=== PATIENT | female | born 1945 | race Caucasian/White ===

== ENCOUNTER → 2023-07-30 10:04 | Outpatient (REF) | payer MEDICARE, OTHER, SELFPAY | LOC: SDSPAT 10:04 | PROVIDERS: ATTENDING PHYSICIAN Otolaryngology Facial Plastic Surgery | DX: J32.2 Chronic ethmoidal sinusitis (principal); J32.0 Chronic maxillary sinusitis; J32.1 Chronic frontal sinusitis; J33.0 Polyp of nasal cavity; J30.0 Vasomotor rhinitis | CPT/HCPCS: 36415; 93005 ==

== ENCOUNTER → 2023-12-09 06:27 | Outpatient (REF) | payer MEDICARE, OTHER, SELFPAY ==
[2023-12-09 07:41] LABS: Blood Urea Nitrogen 17 mg/dl (7-17); Calcium 9.5 mg/dl (8.4-10.2); Carbon Dioxide 30 mmol/L (22-30); Chloride 100 mmol/L (98-107); Glucose 114 mg/dl (70-99); Potassium 4.1 mmol/L (3.5-5.1); Sodium 138 mmol/L (135-145); eGFR > 60.00
== END ==
LOC: REG 06:27
PROVIDERS: ATTENDING PHYSICIAN Internal Medicine Cardiovascular Disease
DX: I10 Essential (primary) hypertension (principal)
CPT/HCPCS: 36415; 80048

== ENCOUNTER 2025-03-05 06:55 | Emergency (ER) | payer MEDICARE, OTHER, SELFPAY ==
[2025-03-05 07:12] VITALS: BP 176/86
[2025-03-05 07:44] LABS: % Basophils 0.9 % (0-2); % Eosinophils 5.2 % (0-6); % Immature Granulocytes 0.5 % (0-0.5); % Lymphocytes 23.3 % (20.5-51.1); % Monocytes 7.3 % (1.7-9.3); % Neutrophils 62.8 % (42.2-75.2); Absolute Basophils 0.1 10^3/uL (0-0.2); Absolute Eosinophils 0.3 10^3/uL (0-0.7); Absolute Lymphocytes 1.5 10^3/uL (1.2-3.4); Absolute Monocytes 0.5 10^3/uL (0.1-0.6); Absolute Neutrophils 4.1 10^3/uL (1.4-6.5); Hematocrit 42.4 % (37.0-47.0); Hemoglobin 14.5 g/dL (12.0-16.0); Mean Corp Hgb Conc. 34.2 g/dL (33.0-37.0); Mean Corpuscular Hgb 31.6 pg (27.0-31.0); Mean Corpuscular Volume 92.4 fL (81.0-99.0); Mean Platelet Volume 9.3 fL (7.4-10.4); Nucleated Red Blood Cells % 0 %; Platelet Count 214 10^3/uL (130-400); Red Blood Cell Count 4.59 10^6/uL (4.20-5.40); Red Cell Dist. Width 12.6 % (11.5-14.5); White Blood Cell Count 6.6 10^3/uL (4.8-10.8)
[2025-03-05 07:51] LABS: ALT (SGPT) 14 U/L (0-35); AST (SGOT) 17 U/L (14-36); Albumin 3.7 g/dl (3.5-5.0); Alkaline Phosphatase 55 U/L (38-126); Blood Urea Nitrogen 14 mg/dl (7-17); Calcium 9.2 mg/dl (8.4-10.2); Carbon Dioxide 29 mmol/L (22-30); Chloride 104 mmol/L (98-107); Glucose 107 mg/dl (70-99); Potassium 3.9 mmol/L (3.5-5.1); Sodium 139 mmol/L (135-145); Total Bilirubin 0.5 mg/dl (0.2-1.3); Total Protein 6.1 g/dl (6.3-8.2); eGFR > 60.00
[2025-03-05 07:53] LABS: COVID-19 Antigen Negative (Negative)
--- NOTE | 2025-03-05 08:46 | EDRN ---
Assumed care of pt at this time.
[2025-03-05 08:48] LABS: Lipase 85 U/L (23-300)
[2025-03-05 08:56] VITALS: BP 161/61
[2025-03-05 08:58] VITALS: BMI 38.1
--- NOTE | 2025-03-05 08:59 | ED.GENMED ---
History of Present Illness
General
Chief Complaint: Abdominal Pain
Source: patient and family (Daughter)
Exam Limitations: none
Time Seen by Provider: 03/05/25 08:32
History of Present Illness
History of Present Illness:
Patient with vague left lower quadrant pain on February 23. Treated for 7 days for presumed diverticulitis with Augmentin. Symptoms have resolved. However since then has had intermittent twinges of left lower quadrant pain. Worse after eating. No
flank or back pain no nausea or vomiting. No urinary symptoms. No diarrhea. No fever. Currently asymptomatic
Past History
Past History
ED Past Medical History: HTN and Hypercholesterolemia
ED Past Surgical History: Other (Sinus surgery)
Social History
Tobacco: Non-smoker
Review of Systems
Review of Systems
All Other Systems: Not applicable
Constitutional: Denies fever or chills
Respiratory: Reports no symptoms
Cardiac: Reports no symptoms
: Reports no symptoms
Phy Exam
Physical Exam
Physical Exam:
GENERAL: Alert and oriented in no apparent distress
EYE: Orbits normal.
NECK: Supple
CARDIAC: Regular rate and rhythm without any obvious murmurs.
LUNGS: Clear breath sounds,normal
ABDOMEN: Soft, without focal tenderness or distention. Specifically no left lower quadrant tenderness
NEUROLOGICAL: Alert and oriented , grossly non-focal
SKIN: Warm and dry, no rash or lesion, no discoloration, skin intact.
MUSCULOSKELETAL: No edema,no deformity.Good color. Superficial varicosities noninflamed
PSYCH: Normal and appropriate interaction.
Course
Orders/Labs/Results
Orders:
Orders
03/05/25 07:31
CMP [Comprehensive Metabolic Panel] Urgent
COVID-19 Antigen Urgent
Source: Nasal Swab
Complete Blood Count/With Diff Urgent
Lipase Urgent
Comment: ADD ON
03/05/25 08:33
Add On- LAB Urgent
Tests Added?: lipase
03/05/25 08:59
CT Abd/Pel (IV only)-DH only Urgent
Comment:
Reason For Exam: Recurrent left lower quadrant pain
IV Insert/Care/Rem.- Treatment PRN
Urinalysis Reflex To Culture Urgent
0.9% Sodium Chloride 500 ml [Nss] 500 ml IV BOLUS
Abnormal Lab Results
03/05/25
07:31
MCH 31.6 H pg
(27.0-31.0)
Glucose 107 H mg/dl
(70-99)
Total Protein 6.1 L g/dl
(6.3-8.2)
03/05/25 07:31
03/05/25 07:31
Vital Signs
Initial and Last Documented VS:
Initial Vital Signs
Temp Pulse Resp BP Pulse Ox
98.1 F 64 18 176/86 97
03/05/25 07:12 03/05/25 07:12 03/05/25 07:12 03/05/25 07:12 03/05/25 07:12
Last Documented Vital Signs
Temp Pulse Resp BP Pulse Ox
98.1 F 58 16 161/61 94
03/05/25 07:12 03/05/25 08:58 03/05/25 10:00 03/05/25 08:56 03/05/25 08:56
MDM/Problems Addressed
Differential Diagnosis Includes:
Possible diverticulitis. Nontoxic exam. With recurrence of symptoms and appropriate treatment feel CT scan is warranted.
*Radiology
Radiology exam reviewed: radiology read reviewed (CT unremarkable.)
*Pulse Oximetry
Patient hypoxic: no
*Critical Care Note
Total Time (30-74mins, 75-104mins- exclusive of procedures): Not Applicable
Data Reviewed
Review of Other/Old Records Reveals: Labs and Testing
Update Note
Update Note:
Copy of report given to patient. Labs CT reviewed. Unable to give urine but not describing UTI symptoms. Discussed covering with antibiotics versus observation. We are all cover comfortable with observation
ED Attending Note
-
Portions of this chart may have been created with voice recognition software.� Occasional wrong word or��sound alike� substitutions may have occurred due to the inherent limitations of voice recognition software.
Discharge Plan
Departure
Patient Disposition: Home (Routine Discharge)
Date of Disposition: 03/05/25
Time of Disposition: 11:43
Patient with high blood pressure during this ER visit?: Yes
Discharge Problem:
Intermittent left lower quadrant pain, Diverticulosis , History of diverticulitis, Incidental renal/hepatic cysts
Instructions: Diverticulosis, Abdominal Pain, BLOOD PRESSURE
Prescriptions:
No Action
cetirizine [Zyrtec] 10 mg Tablet
10 mg PO HS
simvastatin 10 mg Tablet
10 mg PO HS
raloxifene [Evista] 60 mg Tablet
60 mg PO HS
escitalopram oxalate [Lexapro] 10 mg Tablet
10 mg PO HS
Qvar 40 mcg/actuation Aerosol
40 mcg INHALATION HS
amlodipine 5 mg Tablet
5 mg PO HS
magnesium glycinate 100 mg Tablet
200 mg PO HS
Referrals:
Willis Shirley DO [Family Provider] - Follow up in 2-3 days
Interventions
Interventions:
*Risk Screen - Suicide Last Done: 03/05/25 07:20
*General Assessment Last Done: 03/05/25 07:20
*Neglect/Abuse Screening Last Done: 03/05/25 08:52
*ED- Fall Risk Assessment Last Done: 03/05/25 08:52
*ED COVID-19 Vaccine History Last Done: 03/05/25 08:52
TT-Fyrsko-Obivvaezgc Assessment Last Done: 03/05/25 08:52
Discharge Date and Time
Print Language: ALBAN[place]
[2025-03-05] MEDS: NSS 500 IV (09:12)
[2025-03-05 11:48] VITALS: BP 160/71
== END 2025-03-05 12:00 | disposition home or self-care (01) ==
LOC: EMR 06:55
PROVIDERS: Emergency Medicine; EMERGENCY PHYSICIAN Emergency Medicine; FAMILY PHYSICIAN Internal Medicine
DX: R10.32 Left lower quadrant pain (principal); I10 Essential (primary) hypertension; E78.00 Pure hypercholesterolemia, unspecified
CPT/HCPCS: 99284; 96360; 74177; 80053; 83690; 85025; 87811; Q9967

== ENCOUNTER → 2025-03-31 09:19 | Outpatient (REF) | payer MEDICARE, OTHER, SELFPAY ==
[2025-03-31 11:40] LABS: Blood Urea Nitrogen 14 mg/dl (7-17); Calcium 9.3 mg/dl (8.4-10.2); Carbon Dioxide 27 mmol/L (22-30); Chloride 103 mmol/L (98-107); Glucose 103 mg/dl (70-99); Potassium 4.1 mmol/L (3.5-5.1); Sodium 137 mmol/L (135-145); eGFR > 60.00
== END ==
LOC: REG 09:19
PROVIDERS: ATTENDING PHYSICIAN Internal Medicine Cardiovascular Disease
DX: I10 Essential (primary) hypertension (principal)
CPT/HCPCS: 36415; 80048